=== PATIENT | female | born 1975 | race Caucasian/White ===

== ENCOUNTER 2016-05-19 19:19 | Emergency (ER) | payer SELFPAY ==
[~2016-05-19] VITALS: Ht 165.1 cm; Wt 81.8 kg
[~2016-05-19 19:19] MED LIST: AMOXICILLIN 50500 MG PO; NORCO 325 MG-51 TAB PO; PREDNISONE20 MG PO; ULTRAM 50MG TAB50 MG PO
[2016-05-19] MEDS ORDERED: AMOXICILLIN875 MG PO (19:40)
[2016-05-19 19:57] VITALS: BP 121/87; TEMP 99.5
[2016-05-19 20:11] VITALS: PULSE 105
== END 2016-05-19 20:10 | disposition home or self-care (01) ==
LOC: COL.ER 19:19
DX: J02.0 Streptococcal pharyngitis (principal); R59.0 Localized enlarged lymph nodes